=== PATIENT | female | born 1980 | race Caucasian/White ===

== ENCOUNTER 2018-10-25 12:12 | Day surgery (SDC) | payer OTHER ==
[2018-10-24 11:26] VITALS: Ht 160 cm; Wt 91.0 kg
[2018-10-25] VITALS (16 sets, daily range): BP systolic 94–139; BP diastolic 49–86; PULSE 60–102; RESP 13–22
[~2018-10-25] VITALS: Ht 160 cm; Wt 91.0 kg
[~2018-10-25 12:12] MED LIST: CEFAZOLIN 2 GM/50 ML (PMX) 50 ML IVPB SCH; ONDANSETRON 4 MG INJ ONE; ROCURONIUM 50 MG INJ ONE; SOD CHLORIDE 0.9% 1,000 ML IV SCH
[2018-10-25] MEDS ORDERED: OMEP20CA16 PO (13:14)
--- NOTE | 2018-10-25 13:55 | PREAC ---
Date/Time of Note Date/Time of Note DATE: 10/25/18 TIME: 13:54 Anesthesia Eval and Record Evaluation Time Pre-Procedure Interview DATE: 10/25/18 TIME: 13:54 Age 38 Sex female NPO: 8 hrs Preoperative diagnosis cholelithiasis Planned procedure laparoscopic cholecystectomy Past Medical History Past Medical History: Includes GI: Obesity, Other (gastritis) Surgery & Anesthesia Issues No known issue Meds Anticoagulation: No Beta Mohit within 24 hr: No Reason Beta Mohit not given: Pt. not on B-Mohit Reported Medications Omeprazole* (Omeprazole*) 20 Mg Capsule.dr, 20 MG PO BID, #60 CAP 10/25/18 Current Medications Sodium Chloride 1,000 ml @ 75 mls/hr [id number] IV ; Start 10/25/18 at 06:00; Stop 10/25/18 at 19:19 Cefazolin Sodium/ Dextrose 50 ml @ 100 mls/hr PREOP IVPB ; Start 10/25/18 at 06:00; Stop 10/25/18 at 16:00 Meds reviewed: Yes Allergies Coded Allergies: No Known Allergies (Verified Allergy, Unknown, 09/12/18) Allergies Reviewed: Yes Labs/Studies Labs Reviewed: Reviewed by anesthesiologist test: Negative Pre-procedure Exam Last vitals Vital Signs Date Temp Pulse Resp B/P (MAP) Pulse Ox O2 O2 Flow FiO2 Time Delivery Rate 10/25/18 96.3 97 18 119/81 97 Room Air 13:15 (94) Airway: Adequate mouth opening, Adequate thyromental dist Mallampati: Mallampati I Teeth: Normal Lung: Normal Heart: Normal ASA Physical Status ASA physical status: 2 Emergency: None Planned Anesthetic General/MAC: ETT Planned Pain Management Parenteral pain med Pre-operative Attestations Prior to commencing anesthesia and surgery, the patient was re-evaluated, there was verification of: *The patient's identity *The results of appropriate recent lab work and preoperative vital signs *The above evaluation not changing prior to induction *Anesthetic plan, risk benefits, alternative and complications discussed with patient/family; questions answered; patient/family understands, accepts and wishes to proceed. BRANDY MURRAY Oct 25, 2018 13:55
[2018-10-25] MEDS ORDERED: BUPIVACAINE 0.5%/EPI (SDV) 30 ML INJ ONE (13:59)
[2018-10-25] MEDS ORDERED: CEFAZOLIN 1 GM INJ ONE (14:20)
[2018-10-25] MEDS ORDERED: ROCURONIUM 50 MG INJ ONE (14:20)
[2018-10-25] MEDS ORDERED: PROPOFOL 20 ML ONE (14:20)
[2018-10-25] MEDS ORDERED: DEXAMETHASONE 4 MG/ML 5 ML INJ ONE (14:21)
[2018-10-25] MEDS ORDERED: LIDOCAINE 2% (SDV) 5 ML INJ ONE (14:21)
[2018-10-25] MEDS ORDERED: FENTAnyl 50 MCG/ML VIAL ONE (14:22)
[2018-10-25] MEDS ORDERED: ROPIVACAINE 0.5 % 30 ML VIAL ONE (15:10)
--- NOTE | 2018-10-25 15:12 | PAC ---
Date/Time of Note Date/Time of Note DATE: 10/25/18 TIME: 15:10 Post-Anesthesia Notes Post-Anesthesia Note Last documented vital signs BP 132/73 HR 69 Temp 99.5 RR 16 Spo2 96% Vital Signs Date Temp Pulse Resp B/P (MAP) Pulse Ox O2 O2 Flow FiO2 Time Delivery Rate 10/25/18 96.3 97 18 119/81 97 Room Air 13:15 (94) Activity: WNL Respiratory function: WNL Cardiovascular function: WNL Mental status: Baseline Pain reasonably controlled: Yes Hydration appropriate: Yes Nausea/Vomiting absent: Yes UBALDO SANTIZO Oct 25, 2018 15:12
[2018-10-25] MEDS ORDERED: ONDANSETRON 4 MG INJ IV PRN ×2 (15:30→16:00)
[2018-10-25] MEDS ORDERED: IBUPROFEN 600 MG TAB PO PRN (15:30)
[2018-10-25] MEDS ORDERED: HYDROCODONE/APAP (5/325) TAB PO PRN ×2 (15:30)
[2018-10-25] MEDS ORDERED: morphine 2 MG INJ IV PRN (15:30)
[2018-10-25] MEDS ORDERED: KETOROLAC 30 MG INJ IV PRN ×2 (15:30→16:00)
--- NOTE | 2018-10-25 15:35 | OPR ---
Date/Time of Note Date/Time of Note DATE: 10/25/18 TIME: 15:28 Operative Report Procedure Date: Oct 25, 2018 Preoperative Diagnosis Cholelithiasis/chronic cholecystitis Postoperative Diagnosis Cholelithiasis/chronic cholecystitis Operation/Procedure Performed Laparoscopic cholecystectomy Surgeon see signature line Knitted Cloth Examiner None Anesthesia Type: general Anesthesiologist: BRANDY MURRAY Estimated Blood Loss: minimal Transfusion none Specimen Gallbladder Grafts/Implants none Complications none Pt Condition Post Procedure: stable Disposition: PACU Indications The patient is a obese 38-year-old female who presented to the office with complaints of right upper quadrant and left upper quadrant abdominal pain. The patient had clinical signs and symptoms of chronic cholecystitis and biliary colic which was confirmed via an ultrasound which showed the presence of gallstones. The patient also had an EGD preoperatively which showed erosive esophagitis, gastritis and proximal duodenitis. The patient was scheduled for laparoscopic cholecystectomy; possible open as definitive treatment to prevent further sequelae of gallstone disease which include but are not limited to: Gangrenous cholecystitis, choledocholithiasis, gallstone pancreatitis, ascending cholangitis, etc. All risks and benefits of the procedure including but not limited to: Wound infection, excessive bleeding, common bile duct injury, postoperative biliary leak, retained common bile duct stone, injury to intra- abdominal organs, conversion to open procedure, possible need for subsequent surgeries, etc. were all explained to the patient in full detail. We also discussed that cholecystectomy may not resolve her pain completely as there is likely a component of her symptoms secondary to her esophagitis and gastritis. She fully understood and wished to proceed with the procedure. Informed consent was therefore obtained. Procedure Description The patient was brought to the operating room and placed supine on the operating table. Bilateral sequential compression devices were placed on both lower extremities. A dose of broad-spectrum perioperative intravenous antibiotics was given. After the induction of smooth general endotracheal anesthesia the patient's abdomen was prepped and draped in the standard surgical fashion. After performance of the surgical timeout a 5 mm incision was made superior to the umbilicus and a Veress needle was used to access the intra-abdominal cavity atraumatically. Pneumoperitoneum was then obtained and the Veress needle was exchanged for a 5 mm trocar through which a 5 mm laparoscope was placed. Three further working ports were then placed a 12 mm port in the sub-xiphoid region and two 5 mm ports in the right upper quadrant. All port sites were anesthetized with 0.25% Marcaine with epinephrine prior to incision. Using atraumatic graspers the gallbladder was grasped and retracted superiorly and laterally exposing the area of Bernal's pouch. There was a large stone within the neck of the gallbladder. Dissection was begun in this area using a combination of blunt dissection and hook electrocautery. A dilated cystic duct was identified as it entered straight into the neck of the gallbladder. There was a lot of scar tissue and chronic adhesions in the area of the cystic duct. Cystic duct was tediously dissected free of surrounding tissues and clipped proximally and distally x 3 and transected using EndoShears. Dissection was then continued posteriorly. The cystic artery was identified adjacent to Calot's lymph node. It was transected using the hook electrocautery. The gallbladder was then dissected off the liver bed using electrocautery. Once completely free the gallbladder was placed in an Endo Catch bag and withdrawn through the subxiphoid port site and passed off the field as specimen. Hemostasis was then inspected for and noted to be total. The abdomen was then irrigated with several liters of warm normal saline and the irrigant returned crystal clear. The fascia of the subxiphoid port site was then reapproximated using a darron-close device. Pneumoperitoneum was then released and all remaining trochars were withdrawn under direct vision. The subcutaneous tissues were irrigated with more warm normal saline. The skin was then reapproximated using 4-0 Monocryl sutures in subcuticular fashion. The incisions were cleaned and Dermabond was applied to the incisions and the patient was awoken from anesthesia and transported to the recovery room in stable condition. A tap block was performed at the conclusion of the procedure by the anesthesiologist and will be documented separately by him. All counts were correct at the end of the case x 2. PAU AUGUSTINE MD Oct 25, 2018 15:35
[2018-10-25] MEDS ORDERED: NEOSTIGMINE 3 MG/3 ML SYRINGE ONE (15:40)
[2018-10-25] MEDS ORDERED: GLYCOPYRROLATE 0.4 MG INJ ONE (15:40)
--- NOTE | 2018-10-25 15:48 | PAC ---
Date/Time of Note Date/Time of Note DATE: 10/25/18 TIME: 15:47 Post-Anesthesia Notes Post-Anesthesia Note Last documented vital signs Vital Signs Date Temp Pulse Resp B/P (MAP) Pulse Ox O2 O2 Flow FiO2 Time Delivery Rate 10/25/18 96.3 97 18 119/81 97 Room Air 1548 (94) Activity: WNL Respiratory function: WNL Cardiovascular function: WNL Mental status: Baseline Pain reasonably controlled: Yes Hydration appropriate: Yes Nausea/Vomiting absent: Yes BRANDY MURRAY Oct 25, 2018 15:48
[2018-10-25] MEDS ORDERED: HYDROmorphONE 1 MG/5 ML IV SYRINGE IV PRN ×3 (16:00)
[2018-10-25] MEDS ORDERED: MIDAZOLAM 1 MG/ML 2 ML INJ IV PRN (16:00)
[2018-10-25] MEDS ORDERED: EPHEDrine SULFATE 50 MG/5 ML SYG IV PRN (16:00)
[2018-10-25] MEDS ORDERED: DIPHENHYDRAMINE 50 MG INJ IV PRN (16:00)
[2018-10-25] MEDS ORDERED: hydrALAzine 20 MG INJ IV PRN (16:00)
[2018-10-25] MEDS ORDERED: FENTAnyl 50 MCG/ML VIAL IV PRN ×3 (16:00)
[2018-10-25] MEDS ORDERED: OXYCODONE/ACETAMINOPHEN (5/325) TAB PO PRN ×2 (16:00)
[2018-10-25] MEDS ORDERED: ALBUTEROL 0.083% (NEB) 2.5 MG/3 ML AMP HHN PRN (16:00)
[2018-10-25] MEDS ORDERED: MEPERIDINE 25 MG INJ IV PRN (16:00)
[2018-10-25] MEDS ORDERED: METOCLOPRAMIDE 10 MG INJ IV PRN (16:00)
[2018-10-25] MEDS ORDERED: LABETALOL HCL 20MG INJ IV PRN (16:00)
== END 2018-10-25 18:15 | disposition home or self-care (01) ==
LOC: SDS 12:12
PROVIDERS: ATTEND Surgery
DX: K80.10 Calculus of gallbladder with chronic cholecystitis without obstruction (principal)
CPT/HCPCS: 47562; 88304; J0690; J1100; J1170; J2405; J2710; J2795; J3010; Z7512; Z7610